=== PATIENT | female | born 1940 | race Two or more races ===

== ENCOUNTER 2022-10-20 18:05 | Inpatient (IN) | payer OTHER ==
[2022-10-20 18:38] VITALS: BMI 31.4
[2022-10-20 19:27] LABS: VENOUS BASE EXCESS 8.3 mmol/L (-2-2); VENOUS O2 SATURATION 84.9 % (70-80); VENOUS PH 7.447 (7.310-7.410)
[2022-10-20 19:28] LABS: BASO % 0.3 % (0-2.0); EOS % 2.1 % (0-4.5); HEMATOCRIT 36.2 % (32.4-45.2); HEMOGLOBIN 12.3 GM/dL (10.7-15.3); LYMPH % 17.3 % (8-40); MCH 30.3 pg (25.7-33.7); MEAN PLT VOLUME 7.5 fl (7.5-11.1); MONO % 12.1 % (3.8-10.2); NEUT % 68.2 % (42.8-82.8); PLATELET COUNT 280 10^3/uL (134-434); RBC 4.07 M/mm3 (3.60-5.2); RDW 15.5 % (11.6-15.6); WHITE BLOOD COUNT 7.3 K/mm3 (4.0-10.0)
[2022-10-20 19:39] LABS: INR 1.06 (0.83-1.09); PROTHROMBIN TIME (PATIENT) 12.3 SEC (9.7-13.0)
[2022-10-20 19:41] LABS: ACTIVATED PTT 25.2 SECONDS (25.2-36.5)
[2022-10-20 21:03] LABS: CHLORIDE 103 mmol/L (98-107); POTASSIUM 3.2 mmol/L (3.5-5.1); SODIUM 144 mmol/L (136-145)
[2022-10-20 21:05] LABS: ALBUMIN 2.5 g/dl (3.4-5.0); ANION GAP 8 MMOL/L (8-16); BLOOD UREA NITROGEN 15.8 mg/dL (7-18); CALCIUM 8.3 mg/dL (8.5-10.1); CO2 33 mmol/L (21-32); GLUCOSE,RANDOM 102 mg/dL (74-106)
[2022-10-20 21:08] LABS: CREATININE 0.6 mg/dL (0.55-1.3); SGOT/AST 37 U/L (15-37)
[2022-10-20 21:09] LABS: SGPT/ALT 23 U/L (13-61)
[2022-10-20 21:10] LABS: BILIRUBIN,TOTAL 0.2 mg/dL (0.2-1); TOT PROT 6.2 g/dl (6.4-8.2)
[2022-10-20 21:11] LABS: ALK PHOS 43 U/L (45-117)
[2022-10-20 23:12] LABS: LACTIC ACID 2.1 mmol/L (0.4-2.0)
[2022-10-20] MEDS ORDERED: FUROSEMIDE 40 MG/4 ML INJECTABLE VIAL IVPB ONE (23:45)
[2022-10-20] MEDS ORDERED: POTASSIUM CHLORIDE ORAL LIQUID 20 MEQ/15 ML PO ONE (23:45)
[2022-10-20] MEDS ORDERED: FUROSEMIDE 40 MG/4 ML INJECTABLE VIAL ONE (23:50)
[2022-10-20] MEDS ORDERED: POTASSIUM CHLORIDE ORAL LIQUID 20 MEQ/15 ML ONE (23:50)
[2022-10-21 03:15] LABS: ARTERIAL BLOOD GAS BASE EXCESS 8.6 mmol/L (-2-2); ARTERIAL BLOOD GAS PO2 87.3 mmHg (80-100); ARTERIAL BLOOD GAS pH 7.468 (7.350-7.450)
[2022-10-21 03:17] LABS: ALLENS TEST POSITIVE
[2022-10-21 04:51] LABS: PH,URINE 5.5 (5.0-8.0); URINE APPEARANCE CLOUDY; URINE BILIRUBIN NEGATIVE (NEGATIVE); URINE COLOR YELLOW; URINE GLUCOSE (UA) NEGATIVE (NEGATIVE); URINE KETONE NEGATIVE (NEGATIVE); URINE LEUK ESTERASE NEGATIVE (NEGATIVE); URINE NITRITE NEGATIVE (NEGATIVE); URINE PROTEIN NEGATIVE (NEGATIVE); URINE UROBILINOGEN 0.2 mg/dL (0.2-1.0)
[2022-10-21 08:20] VITALS: TEMP 98.1
[2022-10-21] MEDS ORDERED: DIVALPROEX SODIUM 500 MG TABLET E.C. ONE (08:57)
[2022-10-21 09:05] LABS: BASO % 0.6 % (0-2.0); EOS % 2.2 % (0-4.5); HEMATOCRIT 36.2 % (32.4-45.2); HEMOGLOBIN 12.4 GM/dL (10.7-15.3); MCH 30.4 pg (25.7-33.7); MCHC 34.2 g/dl (32.0-36.0); MEAN CELL VOLUME 88.8 fl (80-96); MEAN PLT VOLUME 7.8 fl (7.5-11.1); MONO % 12.9 % (3.8-10.2); NEUT % 60.3 % (42.8-82.8); PLATELET COUNT 248 10^3/uL (134-434); RBC 4.08 M/mm3 (3.60-5.2); RDW 15.2 % (11.6-15.6); WHITE BLOOD COUNT 7.1 K/mm3 (4.0-10.0)
[2022-10-21] MEDS ORDERED: FUROSEMIDE 40 MG/4 ML INJECTABLE VIAL IVPUSH ONE (09:24)
[2022-10-21] MEDS ORDERED: FUROSEMIDE 40 MG/4 ML INJECTABLE VIAL ONE (09:52)
[2022-10-21] MEDS ORDERED: ENOXAPARIN NA (PORCINE) 40 MG/0.4 ML DISP.SYRIN SQ SCH (10:00)
[2022-10-21] MEDS ORDERED: FUROSEMIDE 40 MG TABLET (FP) PO SCH (10:00)
[2022-10-21] MEDS ORDERED: HYDROCHLOROTHIAZIDE 12.5 MG CAPSULE (FP) PO SCH (10:00)
[2022-10-21] MEDS ORDERED: LOSARTAN POTASSIUM 50 MG TABLET PO SCH (10:00)
[2022-10-21] MEDS ORDERED: VALPROIC ACID 250 MG CAPSULE PO SCH (10:00)
[2022-10-21 12:08] VITALS: BP 160/98; PULSE 72; RESP 16
[2022-10-21 12:46] LABS: POTASSIUM 3.3 mmol/L (3.5-5.1)
[2022-10-21 12:48] LABS: CALCIUM 8.6 mg/dL (8.5-10.1)
[2022-10-21 12:49] LABS: BLOOD UREA NITROGEN 16.2 mg/dL (7-18); MAGNESIUM 1.7 mg/dL (1.8-2.4)
[2022-10-21 12:50] LABS: ALBUMIN 2.5 g/dl (3.4-5.0)
[2022-10-21 12:52] LABS: CREATININE 0.5 mg/dL (0.55-1.3)
[2022-10-21 12:53] LABS: PHOSPHOROUS 2.9 mg/dL (2.5-4.9)
[2022-10-21 12:54] LABS: BILIRUBIN,TOTAL 0.2 mg/dL (0.2-1)
[2022-10-21 12:55] LABS: TOT PROT 6.2 g/dl (6.4-8.2)
[2022-10-21] MEDS ORDERED: LURASIDONE HCL 20 MG TABLET PO SCH (22:00)
[2022-10-21] MEDS ORDERED: traZODone HCL 50 MG TABLET (FP) PO SCH (22:00)
== END 2022-10-21 12:00 | DRG 291 ==
LOC: JER 18:05 → JERBED 23:53
PROVIDERS: ADMIT Internal Medicine
DX: I11.0 Hypertensive heart disease with heart failure (principal); I50.33 Acute on chronic diastolic (congestive) heart failure; J98.11 Atelectasis; J45.909 Unspecified asthma, uncomplicated; R56.9 Unspecified convulsions; E78.5 Hyperlipidemia, unspecified; F31.9 Bipolar disorder, unspecified; F39 Unspecified mood [affective] disorder; F25.9 Schizoaffective disorder, unspecified; G30.9 Alzheimer's disease, unspecified; F02.80 Dementia in other diseases classified elsewhere, unspecified severity, without behavioral disturbance, psychotic disturbance, mood disturbance, and anxiety; Z86.73 Personal history of transient ischemic attack (TIA), and cerebral infarction without residual deficits; E66.9 Obesity, unspecified; Z68.31 Body mass index [BMI] 31.0-31.9, adult
CPT/HCPCS: 0241U-QW; 36415; 36600; 70450-TC; 71045-TC-FY; 71250-TC; 80053; 81003; 82550; 82553; 82803; 82962; 83605; 83735; 83880; 84100; 84484; 85025; 85610; 85730; 86850; 86900; 86901; 87040; 87086; 93005; 93010; 93306-TC; 99285-25